=== PATIENT | female | born 1975 | race Hispanic/Latino ===

== ENCOUNTER 2017-04-25 13:42 | Emergency (ER) | payer OTHER, SELFPAY ==
[2017-04-25 14:30] LABS: EOSINOPHILS % (AUTO) 1.4 % (0.0-8.0); HEMATOCRIT 35.5 % (36-48); LYMPHOCYTES % (AUTO) 25.9 % (21.0-51.0); MEAN CORPUSCULAR HEMOGLOBIN 25.3 pg (27.0-33.0); MEAN CORPUSCULAR HGB CONC 31.8 g/dL (32.0-36.0); MEAN CORPUSCULAR VOLUME 79.5 fL (79-99); MONOCYTES % (AUTO) 7.6 % (3.0-13.0); NEUTROPHILS % (AUTO) 64.1 % (40.0-77.0); PLATELET COUNT (AUTO) 432 K/uL (130-400); RED BLOOD CELL COUNT(AUTO) 4.46 MIL/uL (4.00-5.50); RED CELL DISTRIBUTION WIDTH 16.4 % (11.0-15.5); WHITE BLOOD COUNT (AUTO) 5.7 K/uL (4.8-10.8)
[2017-04-25 14:41] LABS: CREATININE 0.7 mg/dL (0.5-1.5)
[2017-04-25] MEDS ORDERED: ONDANSETRON HCL 4 MG/2 ML VIAL ONE (14:43)
[2017-04-25] MEDS ORDERED: SODIUM CHLORIDE 0.9% 1000ML 1,000 ML IV ONE (14:43)
[2017-04-25] MEDS ORDERED: KETOROLAC TROMETHAMINE 30MG/ML ONE (14:43)
[2017-04-25 14:46] LABS: ALBUMIN 3.6 g/dL (3.5-5.0); BILIRUBIN,TOTAL 0.2 mg/dL (0.2-1.0); TOTAL PROTEIN, SERUM 7.2 g/dL (6.0-8.3)
[2017-04-25 14:51] LABS: APPEARANCE,URINE Cloudy (CLEAR); BILIRUBIN,URINE Negative (NEGATIVE); COLOR,URINE Yellow (YELLOW); GLUCOSE, URINE (UA) Negative (NEGATIVE); KETONES,URINE Negative (NEGATIVE); LEUKOCYTE ESTERASE ,URINE Large (NEGATIVE); NITRATE,URINE Negative (NEGATIVE); OCCULT BLOOD,URINE Nonhemolyzed Trace (NEGATIVE); PROTEIN,URINE Negative (NEGATIVE); UROBILINOGEN,URINE 0.2 mg/dL (0.2-1.0)
[2017-04-25 14:53] LABS: HCG,QUAL RESULT NEGATIVE (NEGATIVE)
[2017-04-25] MEDS ORDERED: IOPAMIDOL-370 75 ML VIAL IV ONE (15:05)
[2017-04-25 15:07] LABS: BACTERIA,URINE Few /HPF (None Seen)
[2017-04-25] MEDS ORDERED: NITROFURANTOIN MONOHYD/M-CRYST 100 MG CAPSULE PO ONE (15:44)
== END 2017-04-25 16:25 | disposition home or self-care (01) ==
LOC: EDH 13:42
DX: N39.0 Urinary tract infection, site not specified (principal); K59.00 Constipation, unspecified
CPT/HCPCS: 36415; 74177; 80053; 81001; 81025; 83690; 85025; 96361; 96374; 96375; 99285; J1885; J2405; J7030; Q9967

== ENCOUNTER 2017-06-20 13:07 | Observation (INO) | payer OTHER, SELFPAY ==
[~2017-06-20] VITALS: Ht 160 cm; Wt 69.4 kg
[2017-06-20 14:08] LABS: BASOPHILS % (AUTO) 0.4 % (0.0-5.0); EOSINOPHILS % (AUTO) 0.6 % (0.0-8.0); HEMATOCRIT 33.8 % (36-48); MEAN CORPUSCULAR HEMOGLOBIN 27.6 pg (27.0-33.0); MEAN CORPUSCULAR HGB CONC 34.6 g/dL (32.0-36.0); MEAN CORPUSCULAR VOLUME 79.7 fL (79-99); PLATELET COUNT (AUTO) 393 K/uL (130-400); RED BLOOD CELL COUNT(AUTO) 4.24 MIL/uL (4.00-5.50); RED CELL DISTRIBUTION WIDTH 17.3 % (11.0-15.5); WHITE BLOOD COUNT (AUTO) 7.2 K/uL (4.8-10.8)
[2017-06-20 14:13] LABS: APPEARANCE,URINE Clear (CLEAR); BILIRUBIN,URINE Negative (NEGATIVE); COLOR,URINE Yellow (YELLOW); GLUCOSE, URINE (UA) Negative (NEGATIVE); KETONES,URINE Negative (NEGATIVE); LEUKOCYTE ESTERASE ,URINE Small (NEGATIVE); NITRATE,URINE Negative (NEGATIVE); OCCULT BLOOD,URINE Large (NEGATIVE); PH,URINE 5.5 (5.0-8.0); PROTEIN,URINE Negative (NEGATIVE); UROBILINOGEN,URINE 0.2 mg/dL (0.2-1.0)
[2017-06-20 14:16] LABS: CREATININE 0.7 mg/dL (0.5-1.5); POTASSIUM 3.3 mmol/L (3.5-5.1)
[2017-06-20 14:20] LABS: ALBUMIN 3.5 g/dL (3.5-5.0); BILIRUBIN,TOTAL 0.2 mg/dL (0.2-1.0); TOTAL PROTEIN, SERUM 7.3 g/dL (6.0-8.3)
[2017-06-20 14:23] LABS: BACTERIA,URINE Rare /HPF (None Seen); RBC,URINE >100 /HPF (0-1)
[2017-06-20 14:30] LABS: INR 0.93 (0.85-1.15); PARTIAL THROMBOPLASTIN TIME 25.5 SEC (26.3-35.5); PROTHROMBIN TIME 9.8 SEC (9.6-11.6)
[2017-06-20] MEDS ORDERED: ONDANSETRON HCL 4 MG/2 ML VIAL ONE ×2 (14:35→20:44)
[2017-06-20] MEDS ORDERED: MORPHINE SULFATE 4 MG/1ML SYG ONE ×2 (14:35→16:37)
[2017-06-20] MEDS ORDERED: IOPAMIDOL-370 75 ML VIAL IV ONE (14:35)
[2017-06-20] MEDS ORDERED: MORPHINE SULFATE 2 MG/ML 1ML SYG ONE (20:45)
[2017-06-20 21:10] VITALS: BP 138/79
[2017-06-20] MEDS ORDERED: MVIT PO (21:35)
[2017-06-20] MEDS ORDERED: MORPHINE SULFATE 2 MG/ML 1ML SYG IVP PRN (23:00)
[2017-06-20] MEDS ORDERED: ONDANSETRON HCL 4 MG/2 ML VIAL IVP PRN (23:00)
[2017-06-20 23:07] VITALS: BP 128/77
[2017-06-20] MEDS ORDERED: MAGNESIUM HYDROXIDE 30 ML/UDCUP PO SCH (23:15)
[2017-06-20] MEDS ORDERED: POTASSIUM CHLORIDE 20 MEQ ERTAB PO PRN (23:30)
[2017-06-20] MEDS ORDERED: POTASSIUM CHLORIDE 10% ELIXIR 20 MEQ/15 ML UDCUP PO PRN (23:30)
[2017-06-20] MEDS ORDERED: POTASSIUM CHLORIDE 20MEQ/100ML 100 ML IV PRN (23:30)
[2017-06-20] MEDS ORDERED: HYDRALAZINE HCL 20 MG/ML VIAL IV PRN (23:30)
[2017-06-20] MEDS ORDERED: LIDOCAINE HCL-MPF 1% 2ML VIAL IVP PRN (23:30)
[2017-06-21] MEDS ORDERED: MAGNESIUM HYDROXIDE 30 ML/UDCUP ONE (00:05)
[2017-06-21] MEDS ORDERED: POTASSIUM CHLORIDE 20MEQ/100ML 100 ML IV ONE (00:24)
[2017-06-21 03:20] VITALS: BP 115/80
[2017-06-21] MEDS: SODIUM CHLORIDE 0.9% 1000ML 1,000 ML IV SCH ×2 (03:26→13:38)
[2017-06-21 05:50] LABS: BASOPHILS % (AUTO) 0.9 % (0.0-5.0); EOSINOPHILS % (AUTO) 1.2 % (0.0-8.0); HEMATOCRIT 33.1 % (36-48); LYMPHOCYTES % (AUTO) 18.3 % (21.0-51.0); MEAN CORPUSCULAR HGB CONC 32.2 g/dL (32.0-36.0); MEAN CORPUSCULAR VOLUME 80.9 fL (79-99); MONOCYTES % (AUTO) 8.9 % (3.0-13.0); NEUTROPHILS % (AUTO) 70.7 % (40.0-77.0); PLATELET COUNT (AUTO) 350 K/uL (130-400); RED BLOOD CELL COUNT(AUTO) 4.09 MIL/uL (4.00-5.50); RED CELL DISTRIBUTION WIDTH 18.3 % (11.0-15.5); WHITE BLOOD COUNT (AUTO) 5.3 K/uL (4.8-10.8)
[2017-06-21 06:21] LABS: CREATININE 0.6 mg/dL (0.5-1.5); POTASSIUM 4.7 mmol/L (3.5-5.1)
[2017-06-21 07:30] VITALS: BP 118/70
[2017-06-21] MEDS ORDERED: FAMOTIDINE/PF 20 MG/2 ML VIAL IV SCH (09:00)
[2017-06-21 11:18] VITALS: BP 99/64
[2017-06-21] MEDS ORDERED: ACETAMINOPHEN 325 MG TAB PO PRN (14:15)
[2017-06-21 15:10] VITALS: BP 123/69
[2017-06-21] MEDS ORDERED: FLU VACC QS2017-18 36MOS UP/PF 60 MCG/0.5 ML ML IM ONE ×2 (15:14→15:30)
== END 2017-06-21 15:45 | disposition home or self-care (01) ==
LOC: EDH 13:07 → EDHIP 13:08 → WSH 21:10
PROVIDERS: ADMIT Family Medicine; ATTEND Family Medicine
DX: R10.2 Pelvic and perineal pain (principal); E87.6 Hypokalemia; Z98.51 Tubal ligation status; Z23 Encounter for immunization
CPT/HCPCS: 36415 ×2; 74177; 76856; 80048; 80053; 81001; 81025; 83690; 84484; 85025 ×2; 85610; 85730; 87804 ×2; 93005; 96365; 96366; 96372; 96375; 99285; G0008; G0378 ×27; J2270 ×2; J2405 ×2; J3480 ×2; J3490; J7030; Q2038; Q9967

== ENCOUNTER 2019-07-08 07:14 | Emergency (ER) | payer OTHER, SELFPAY ==
[~2019-07-08 07:14] MED LIST: MVIT PO
[2019-07-08] MEDS ORDERED: DEXAMETHASONE SOD PHOSPHATE 10MG/ML 1ML VIAL ONE (08:07)
[2019-07-08] MEDS ORDERED: LIDOCAINE HCL-MPF 1% 2ML VIAL ONE (08:07)
[2019-07-08] MEDS ORDERED: CEFTRIAXONE SODIUM 1 GM ONE (08:08)
== END 2019-07-08 09:15 | disposition home or self-care (01) ==
LOC: EDH 07:14
DX: J02.9 Acute pharyngitis, unspecified (principal); H92.02 Otalgia, left ear; R50.9 Fever, unspecified; Z98.51 Tubal ligation status
CPT/HCPCS: 87804 ×2; 96372 ×2; 99284; J0696; J1100; J3490

== ENCOUNTER 2020-04-26 12:14 | Emergency (ER) | payer OTHER ==
[2020-04-26] MEDS ORDERED: KETOROLAC 30MG VIAL (30MG/ML) ONE (14:44)
[2020-04-26] MEDS ORDERED: TETANUS/DIPHTHERIA TOXOID [ADULT] 0.5 ML VIAL IM ONE (14:45)
== END 2020-04-26 14:58 | disposition home or self-care (01) ==
LOC: EDH 12:14
DX: S61.412A Laceration without foreign body of left hand, initial encounter (principal); Z98.51 Tubal ligation status; W26.8XXA Contact with other sharp object(s), not elsewhere classified, initial encounter; Y93.89 Activity, other specified; Y92.89 Other specified places as the place of occurrence of the external cause; Y99.8 Other external cause status
CPT/HCPCS: 12042; 73130; 90471; 90714; 96372; 99284; J1885

== ENCOUNTER 2024-05-22 07:34 | Emergency (ER) | payer SELFPAY ==
[~2024-05-22] VITALS: Ht 160 cm; Wt 75.3 kg
[~2024-05-22 07:34] MED LIST changes: +AZIT1PAC15 PO; +GUAI120L62 PO
[2024-05-22 07:36] VITALS: BP 166/91; PULSE 76; RESP 20; TEMP 98
[2024-05-22] MEDS: TETRACAINE HCL 0.5% 4 ML OPHTH SOLN OP SCH (07:53)
[2024-05-22] MEDS: FLUORESCEIN SODIUM 1 STRIP STRIP OP SCH (07:53)
[2024-05-22] MEDS: FLUORESCEIN SODIUM 1 STRIP STRIP ONE (07:54)
[2024-05-22] MEDS: TETRACAINE HCL 0.5% 4 ML OPHTH SOLN ONE (07:54)
[2024-05-22] MEDS ORDERED: KETO1DRO3 OP (08:15)
[2024-05-22] MEDS ORDERED: POLYOS OP (08:15)
--- NOTE | 2024-05-22 08:16 | ERN ---
General Chief Complaint: Foreign Body Stated Complaint: LT EYE PAIN Time Seen by MD: 07:37 History of Present Illness Initial Comments 48-year-old female who presents for foreign body sensation in the left eye. She reports that she was cleaning yesterday and she thought some dust particles got in her eye. She woke up this morning with conjunctival redness. No discharge. No systemic illness. No vision changes. No viral URI type symptoms. She wears glasses but does not wear contact lenses. Allergies: Coded Allergies: No Known Drug Allergies (Unverified Allergy, Unknown, 06/20/17) Home Meds Active Scripts Guaifenesin/Codeine Phosphate (Codeine-Guaifen 10-100 mg/5 ml) 120 Ml Liquid, 5- 10 ML PO QID PRN for COUGH for 5 Days, #70 ML 0 Refills Prov:RAJNI HWANG MD 03/08/21 Azithromycin (Zithromax) 1 Gm Packet, 1 GM PO AD for 5 Days, #1 PKT 0 Refills Prov:RAJNI HWANG MD 03/08/21 Reported Medications Multivitamins,Therapeutic (Multivitamin Tablet) 1 Tab Tab, 1 TAB PO DAILY, TAB 06/20/17 Past Medical History Past Medical History: No Pertinent History Past Surgical History: Other ROS Dictation CONSTITUTIONAL: No chills, no fever, no weakness, no diaphoresis, no malaise. HEAD/FACE: No signs of trauma. EENT: Foreign body sensation to eyeball left RESPIRATORY: No cough, no orthopnea, no SOB, no stridor, no wheezing. CARDIOVASCULAR: No chest pain, no edema, no palpitations, no syncope. GASTROINTESTINAL/ABDOMINAL: No abdominal pain, no constipation, no diarrhea, no nausea, no vomiting. GENITOURINARY: No abnormal discharge, no dysuria, no frequent urination, no hematuria. No complaints of pain in the genitals. MUSCULOSKELETAL: No back pain, no gout, no joint pain, no joint swelling, no muscle pain, no muscle stiffness, no neck pain. INTEGUMENTARY: No change in color, no change in hair/nails, no dryness, no lesion, no lumps, no rash. NEUROLOGICAL/PSYCH: No anxiety, not depressed, no emotional problem, no headache, no numbness, no pre-existing deficit, no history of seizures, no tremors, no weakness. HEMATOLOGIC/LYMPHATIC: Not anemic, no history of blood clots, no apparent bleeding, no bruising, glands not swollen. All Systems Negative, Except as Noted. Physical Exam Physical Exam Dictation VITAL SIGNS: Reviewed. GENERAL APPEARANCE: Alert, oriented x3, no acute distress, obese. HEAD AND FACE: Non-traumatic. EYES: PERRL, pink conjunctivas, eyelid no trauma, anterior chamber clear. EARS: Pinnas intact and no signs of trauma or erythema. Ear canals clear and no discharge. TMs no erythema. NOSE: No discharge, no bleeding. OROPHARYNX: Mouth normal, teeth no caries, tongue pink. Pharynx clear, no erythema. Tonsils no exudates, no abscesses noted. Mucous membrane moist. NECK: Supple, non-tender, no thyromegaly, no masses, no JVD, no bruits. BREAST: Deferred. CHEST: No tenderness, no crepitus, no paradoxical movement, no retractions. LUNGS: Clear, well-ventilated, symmetric, no rales, no wheezing, no rhonchi, no stridor, good breath sounds bilaterally. HEART: Regular rate, regular rhythm, no murmur, no gallops. VASCULAR: No peripheral edema. ABDOMEN: Soft, positive bowel sounds, nondistended, no guarding, nontender, no rebound, no masses no hepatomegaly, no splenomegaly, no Cesar's sign, no hernias. RECTAL: Deferred. GENITAL: Deferred. NEUROLOGICAL: Normal speech, gross motor function intact, gross sensory function intact. MUSCULOSKELETAL: Neck nontender, full range of motion, back nontender, full range of motion. EXTREMITIES: Nontender, full range of motion. SKIN: Color pink, dry, no turgor, no rash, no lacerations, no abrasions, no c ontusions. LYMPHATICS: Deferred. MDM CC: Foreign body sensation in the left eye Limitations by social determinants of health: None Historian: Patient Comorbidities: None Vital signs stable Differential diagnosis: Viral conjunctivitis, foreign body, corneal abrasion, other. I performed a exam with lidocaine fluorescein. There is a bit of uptake in the upper area but no obvious foreign bodies. The eye was rinsed out. We will DC with pain control drops and antibiotic drops. Recommend follow up with the eye doctor. ED Course Orders Procedure Category Date Status Time Fluorescein Sodium PHA 05/22/24 Complete (Chqhv-N-Dtjwo At) 07:41 Tetracaine Hcl PHA 05/22/24 Complete (Pontocaine 0.5% 07:41 Tetracaine Hcl PHA 05/22/24 In Process (Pontocaine 0.5% 08:00 Fluorescein Sodium PHA 05/22/24 In Process (Levat-O-Uomzv At) 08:00 Visual Acuity Test CPOE 05/22/24 Transmitted (Er) 07:51 Current Medications Medications (Trade) Dose Ordered Sig/Chandra Route PRN Reason Start Time Stop Time Status Last Admin Dose Admin Fluorescein Sodium (Atzyr-R-Jaunl At) 1 strip ONCE OP 05/22/24 08:00 06/21/24 07:59 05/22/24 07:53 Fluorescein Sodium (Bgpwo-U-Aqzcz At) 1 strip STK-MED ONCE .ROUTE 05/22/24 07:41 05/22/24 07:42 DC Tetracaine HCl (Pontocaine 0.5% Ophth Soln) 1 drop ONCE OP 05/22/24 08:00 06/21/24 07:59 05/22/24 07:53 Tetracaine HCl (Pontocaine 0.5% Ophth Soln) 20 drop STK-MED ONCE .ROUTE 05/22/24 07:41 05/22/24 07:42 DC Vital Signs Date Time Temp Pulse Resp B/P (MAP) Pulse Ox O2 Delivery O2 Flow Rate FiO2 05/22/24 07:36 98.1 76 20 166/91 99 Room Air DX & DISP Disposition: Discharge Departure Impression: Primary Impression: Left conjunctivitis Condition: Stable Scripts Ketorolac Tromethamine/Pf (Acuvail 0.45% Ophth Solution) 0.45 % Droperette 1 EACH OP TID PRN for PAIN, #1 DROP Prov: JUAN MANUEL HOROWITZ DO 05/22/24 Polymyxin B Sulfate/Tmp (Polytrim Ophth Soln) 10,000 Unit-1 Mg/Ml Opsol 1 DROP OP TID for 7 Days, #10 ML 0 Refills Prov: JUAN MANUEL HOROWITZ DO 05/22/24 Additional Instructions: There is no obvious foreign body in your eye. You likely have a conjunctivitis, which is inflammation of the conjunctiva. I have prescribed Polytrim drops. Take this 3 times a day for the next seven days. This is an antibiotic. I have prescribed Acuvail, which is an anti-inflammatory drops to use for pain and discomfort. You can take this up to 3 times a day as needed. As we discussed, please follow up with the eye doctor within 48 hours if your symptoms do not improve. Referrals: JEANNETTE WATKINS (PCP) JUAN MANUEL HOROWITZ DO May 22, 2024 08:16
== END 2024-05-22 08:36 | disposition home or self-care (01) ==
LOC: EDH 07:34
DX: H10.9 Unspecified conjunctivitis (principal); Z79.899 Other long term (current) drug therapy; Z98.890 Other specified postprocedural states
CPT/HCPCS: 99283